=== PATIENT | male | born 1970 | race Caucasian/White ===

== ENCOUNTER → 2020-09-12 | Outpatient (CLI) | payer OTHER | LOC: M LABSMTC 11:22 | PROVIDERS: ATTEND Anesthesiology | DX: Z01.812 Encounter for preprocedural laboratory examination (principal); Z20.828 Contact with and (suspected) exposure to other viral communicable diseases | CPT/HCPCS: C9803; U0003 ==

== ENCOUNTER 2020-09-17 12:23 | Day surgery (SDC) | payer BC ==
[~2020-09-17] VITALS: Ht 172.7 cm; Wt 93.9 kg
[~2020-09-17 12:23] MED LIST: NS 1,000 ML IV ONE
[2020-09-17] MEDS ORDERED: LIDOCAINE 2% 100MG/5ML SDV (FOR ANES.) As Ordered ONE (14:00)
[2020-09-17] MEDS ORDERED: propofoL 200 MG/20 ML VIAL As Ordered ONE ×2 (14:00→14:14)
--- NOTE | 2020-09-17 14:26 | ROOR ---
Patient Name: Oscar Espana Procedure Date: 09/17/2020 1:48 PM Date of : 1970 Age: 50 Room: [facility] Gender: Male Note Status: Finalized Procedure: Colonoscopy Indications: Screening for colorectal malignant neoplasm, This is the patient's first colonoscopy Providers: Juan M Crowley MD Referring MD: Juanjose Mclean MD Requesting Provider: Medicines: Monitored Anesthesia Care Complications: No immediate complications. Procedure: Pre-Anesthesia Assessment: - Prior to the procedure, a History and Physical was performed, and patient medications and allergies were reviewed. The patient is competent. The risks and benefits of the procedure and the sedation options and risks were discussed with the patient. All questions were answered and informed consent was obtained. Patient identification and proposed procedure were verified by the physician, the nurse and the bread supervisor in the procedure room. Mental Status Examination: alert and oriented. Airway Examination: normal oropharyngeal airway and neck mobility. CV Examination: regular rate and rhythm. Prophylactic Antibiotics: The patient does not require prophylactic antibiotics. Prior Anticoagulants: The patient has taken no previous anticoagulant or antiplatelet agents. ASA Grade Assessment: II - A patient with mild systemic disease. After reviewing the risks and benefits, the patient was deemed in satisfactory condition to undergo the procedure. The anesthesia plan was to use monitored anesthesia care (MAC). Immediately prior to administration of medications, the patient was re-assessed for adequacy to receive sedatives. The heart rate, respiratory rate, oxygen saturations, blood pressure, adequacy of pulmonary ventilation, and response to care were monitored throughout the procedure. The physical status of the patient was re-assessed after the procedure. The Colonoscope was introduced through the anus and advanced to the cecum, identified by appendiceal orifice and ileocecal valve. The colonoscopy was performed without difficulty. The patient tolerated the procedure well. The quality of the bowel preparation was good. Findings: The perianal and digital rectal examinations were normal. A 4 mm polyp was found in the ileocecal valve. The polyp was sessile. The polyp was removed with a jumbo cold forceps. Resection and retrieval were complete. Estimated blood loss was minimal. The exam was otherwise without abnormality. Impression: - One 4 mm polyp at the ileocecal valve, removed with a jumbo cold forceps. Resected and retrieved. - The examination was otherwise normal. Recommendation: - Discharge patient to home. - Resume previous diet. - Continue present medications. - Await pathology results. - If the pathology report reveals adenomatous tissue, then repeat the colonoscopy for surveillance in 3 - 5 years. Juan M Crowley MD Juan M Crowley MD 09/17/2020 2:26:09 PM Electronically signed by Juan M Crowley MD Number of Addenda: 0 Note Initiated On: 09/17/2020 1:48 PM Estimated Blood Loss: Estimated blood loss was minimal.
[2020-09-17 14:37] VITALS: BP 139/84
== END 2020-09-17 15:08 | disposition home or self-care (01) ==
LOC: M OPP 12:23
PROVIDERS: ATTEND Surgery
DX: Z12.11 Encounter for screening for malignant neoplasm of colon (principal); D12.0 Benign neoplasm of cecum

== ENCOUNTER 2025-11-06 10:41 | Day surgery (SDC) | payer BC ==
[~2025-11-06] VITALS: Ht 172.7 cm; Wt 92.6 kg
[~2025-11-06 10:41] MED LIST changes: +ATOR1TAB19 PO; -NS 1,000 ML IV ONE
[2025-11-06 12:11] VITALS: TEMP 98
[2025-11-06 12:35] VITALS: BP 121/77; O2SAT 95
== END 2025-11-06 12:45 | disposition home or self-care (01) ==
LOC: M OPP 10:41
PROVIDERS: ATTEND Surgery
DX: Z86.0100 Personal history of colon polyps, unspecified (principal); Z88.1 Allergy status to other antibiotic agents; Z79.899 Other long term (current) drug therapy